=== PATIENT | female | born 1950 | race Caucasian/White ===

== ENCOUNTER 2016-10-18 12:25 | Inpatient (IN) | payer BC ==
[2016-10-05 09:46] LABS: BASOPHILS 0.6 %; BASOPHILS ABSOLUTE 0.04 10/3/uL (0.0-0.16); EOSINOPHILS 0.6 %; EOSINOPHILS ABSOLUTE 0.04 10/3/uL (0.0-0.53); IMMATURE GRANULOCYTES 0.2 %; IMMATURE GRANULOCYTES ABSOLUTE 0.01 10/3/uL (0.0-0.11); INTERNATIONAL NORMAL RATI 0.9 UNITS (-); LYMPHOCYTES 18.6 %; LYMPHOCYTES ABSOLUTE 1.16 10/3/uL (0.67-4.30); MEAN CORPUS HGB CONC 33.3 g/dL (32.0-36.0); MEAN CORPUSCULAR HEMOGLOB 29.6 pg (26.0-34.0); MEAN PLATELET VOLUME 9.6 fL (9.2-13.0); MONOCYTES 6.3 %; MONOCYTES ABSOLUTE 0.39 10/3/uL (0.21-1.20); NEUTROPHILS 73.7 %; PLATELET COUNT 314 10/3/uL (150-400); RBC DISTRIBUTION WIDTH 13.8 % (12.0-16.0); RED CELL COUNT 4.69 10/6/uL (4.0-5.6); WHITE BLOOD CELLS 6.2 10/3/uL (4.5-10.5)
[2016-10-05 09:47] LABS: HEMATOCRIT 41.7 % (36.0-48.0); HEMOGLOBIN 13.9 g/dL (12.0-16.0); MANUAL DIFF NO %; MEAN CORPUSCULAR VOLUME 88.9 fL (80-100); PROTIME (NOT ORD) 12.5 SEC (12.0-14.5)
[2016-10-05 10:07] LABS: A/G RATIO 1.3 (0.7-1.9); ALKALINE PHOSPHATASE 72 U/L (45-117); BUN (BLOOD UREA NITROGEN) 20 MG/DL (6-23); CALCIUM, SERUM 9.4 MG/DL (8.5-10.4); CHLORIDE, SERUM 107 MMOL/L (96-112); CO2 (CARBON DIOXIDE) 27 MMOL/L (24-34); CREATININE 0.62 MG/DL (0.55-1.02); GFR AFRICAN AMERICAN 110 ML/MIN (>=60); GFR NON AFRICAN AMERICAN 95 ML/MIN (>=60); GLUCOSE, SERUM 85 MG/DL (60-99); POTASSIUM, SERUM 4.6 MMOL/L (3.5-5.3); SGOT(AST) 21 U/L (5-40); SGPT(ALT) 26 U/L (5-65); SODIUM, SERUM 141 MMOL/L (135-148); TOTAL BILIRUBIN 0.6 MG/DL (0-1.2)
[2016-10-05 11:25] LABS: ASCORBIC ACID (UR NOT ORDER) NEG (NEG); BILIRUBIN, URINE NEGATIVE (NEG); KETONE, URINE NEGATIVE (NEG); LEUKOCYTE ESTERASE(NOT OR SMALL (NEG); WBC (NOT ORDERED) (RFLEX) 1 (0-5)
--- NOTE | ~2016-10-18 | OP ---
Record Of Operation [facility] [address] [place]. [address] NAME: BLANCA MURPHY : 54 STATUS : DIS IN PAT#: [id number] AGE: 66 ADM/REG DATE : 10/18/16 MR#: [id number] REPORT SERV DATE: 10/20/16 DICTATED BY: OPAL JAY DATE: 10/20/16 REPORT STATUS : Draft TRANSCRIBED BY: MODPeter DATE: 10/20/16 DATE OF PROCEDURE: 10/19/2016 PREOPERATIVE DIAGNOSIS: Failed right total knee arthroplasty. POSTOPERATIVE DIAGNOSIS: Failed right total knee arthroplasty. PROCEDURE: Right total knee revision arthroplasty. DESCRIPTION OF PROCEDURE: The patient was taken to the operating room and placed supine on the table in normal fashion without incident. General anesthetic was induced per the anesthesiologist. The patient was carefully positioned, padded, prepped, and draped in a normal sterile fashion. There was gross loosening of the tibial component, which was approximately 15 years old. The components were removed with flexible osteotomes. Cement was meticulously debrided. Sequential reamers were used in the femur and tibia to a 14 intramedullary guides were used to cut the proximal tibia and distal femur. Ruler was used to verify flexion and extension balance. The remaining cuts were made in the distal femur using the intramedullary guides. With trial components in place, there was now excellent medial and lateral balance and excellent flexion and extension balance. The tibia and femur were both built up with augments. The patella was recut with an oscillating saw and drilled with patella drill guide. With the trial patella in place, there was excellent patellar tracking. All surfaces were copiously irrigated with pulsatile lavage. Vacuum-mixed cement premixed with antibiotic was pressurized in a doughy phase in the tibia, tibial component placed, impacted, and excess cement removed. Cement was pressurized in the femur and placed on the posterior runners of the femoral component, which was placed, impacted, and excess cement removed. Knee brought out in extension on trial spacer. Cement was pressurized in the patella, and patellar component was placed, held with clamp, and excess cement removed. Once all cement was hardened, the knee was taken to range of motion and further extruded cement was removed with a small osteotome. The actual insert was then placed, impacted, and checked to be sure it was sound and snug. The knee was closed in a layered fashion over medium ConstaVac drain superolaterally. The wound was dressed sterilely. The patient was awakened and taken to the postanesthesia care unit without incident. COMPLICATIONS: None. SPECIMENS: None. ESTIMATED BLOOD LOSS: Trace. SHAMEKAB/ANNETTE Rachel Jay M.D. Record Of Operation [facility] [id number] [place]. [address] NAME: BLANCA MURPHY : 54 STATUS : DIS IN PAT#: [id number] AGE: 66 ADM/REG DATE : 10/18/16 MR#: [id number] REPORT SERV DATE: 10/20/16 DICTATED BY: OPAL JAY DATE: 10/20/16 REPORT STATUS : Draft TRANSCRIBED BY: ANNETTE DATE: 10/20/16 / [id number] CC: Dereck Faust M.D.
[~2016-10-18 12:25] MED LIST: ADVIL PO; ALEVE220 MG PO; HEMOCYTE324 MG PO; MAGNESIUM PO; NEUR100 PO; PERCOCET1 TA4 PO; T PO; VITAMIN D2000 UNIT PO; [UNRECOGNIZED DRUG - OTHER] PO
[2016-10-19 04:28] LABS: HEMOGLOBIN 11.3 g/dL (12.0-16.0)
[2016-10-19 04:30] LABS: HEMATOCRIT 34.7 % (36.0-48.0)
[2016-10-19 04:36] LABS: INTERNATIONAL NORMAL RATI 1.1 UNITS (-); PROTIME (NOT ORD) 14.4 SEC (12.0-14.5)
[2016-10-19 04:43] LABS: BUN (BLOOD UREA NITROGEN) 20 MG/DL (6-23); CHLORIDE, SERUM 103 MMOL/L (96-112); CO2 (CARBON DIOXIDE) 29 MMOL/L (24-34); CREATININE 0.83 MG/DL (0.55-1.02); GFR AFRICAN AMERICAN 86 ML/MIN (>=60); GFR NON AFRICAN AMERICAN 75 ML/MIN (>=60); POTASSIUM, SERUM 4.1 MMOL/L (3.5-5.3); SODIUM, SERUM 138 MMOL/L (135-148)
[2016-10-19 04:45] LABS: CALCIUM, SERUM 8.3 MG/DL (8.5-10.4); GLUCOSE, SERUM 139 MG/DL (60-99)
[2016-10-20 06:31] LABS: HEMATOCRIT 32.2 % (36.0-48.0); HEMOGLOBIN 10.9 g/dL (12.0-16.0)
[2016-10-20 06:37] LABS: INTERNATIONAL NORMAL RATI 1.3 UNITS (-); PROTIME (NOT ORD) 15.9 SEC (12.0-14.5)
[2016-10-20] MEDS ORDERED: C5 (11:44)
[2016-10-20] MEDS ORDERED: ZOFRAN4 PO (11:45)
[2016-10-20] MEDS ORDERED: OXYCOD PO (11:45)
== END 2016-10-20 13:30 | disposition home or self-care (01) | DRG 467 ==
LOC: SDC/OF 12:25 → 3JRC 19:37
PROVIDERS: Specialist
PROC: 3E0T3CZ (ICD-10-PCS; 2016-10-18)
PROC: 0SWC0JZ Revision of Synthetic Substitute in Right Knee Joint, Open Approach (ICD-10-PCS; principal; 2016-10-18 14:30)
DX: T84.022A Instability of internal right knee prosthesis, initial encounter (principal); Z68.41 Body mass index [BMI] 40.0-44.9, adult; E66.01 Morbid (severe) obesity due to excess calories; R25.1 Tremor, unspecified; Z96.653 Presence of artificial knee joint, bilateral; Z79.899 Other long term (current) drug therapy; Z82.49 Family history of ischemic heart disease and other diseases of the circulatory system
CPT/HCPCS: 36415; 71020; 80048; 80053; 81001; 85014; 85018; 85025; 85610; 86850; 86900; 86901; 87015; 87070; 87075; 87086; 87102; 87116; 87205; 87641; 88300; 88304; 88311; 93005; 97116-GP; 97150-GP; 97161-GP; 97165-GO; 97535-GO; A9270-GY; C1776; J0690; J1885; J2250; J2270; J2370; J2405; J2795; J3010